=== PATIENT | male | born 1965 | race African-American/Black ===

== ENCOUNTER 2022-05-21 07:49 | Emergency (ER) | payer OTHER ==
[2022-05-21] MEDS ORDERED: Tetracaine 0.5% PF 4 ML BOT ONE (08:13)
== END 2022-05-21 08:33 | disposition home or self-care (01) ==
LOC: BURERS 07:49
DX: H10.9 Unspecified conjunctivitis (principal); E11.22 Type 2 diabetes mellitus with diabetic chronic kidney disease; I12.0 Hypertensive chronic kidney disease with stage 5 chronic kidney disease or end stage renal disease; N18.6 End stage renal disease; F17.210 Nicotine dependence, cigarettes, uncomplicated; Z79.899 Other long term (current) drug therapy
CPT/HCPCS: 99283